=== PATIENT | male | born 1985 | race Two or more races ===

== ENCOUNTER → 2018-03-13 | Outpatient (CLI) | payer BC ==
--- NOTE | 2018-03-13 09:03 | RAD ---
Limited ultrasound abdomen March 13, 2018 INDICATION: Right upper quadrant abdominal pain. COMPARISON: None available. TECHNIQUE: Sonographic evaluation of the abdomen was performed utilizing grayscale and color Doppler. FINDINGS: Pancreas is not well visualized due to overlying bowel gas. Aorta is not well visualized. IVC is patent. There is increased echogenicity of the hepatic parenchyma suggestive of hepatocellular disease, most commonly hepatic steatosis. The liver measures 16.0 cm. Findings Limited evaluation for underlying hepatic masses. There is no intrahepatic or extrahepatic biliary ductal dilatation. This hepatopedal flow within the portal venous system. Gallbladder is mildly contracted. There is mild gallbladder wall thickening measuring up to 4 mm which may be secondary to contracted gallbladder state. Common bile duct measures 3 mm. No gallstones or pericholecystic fluid noted. The right kidney measures 11.7 x 5.7 x 5.1 cm. There is normal cortical medullary differentiation. Renal parenchyma appears normal in echogenicity. There is no hydronephrosis. No suspicious renal mass. No renal calculi are identified. There is no free fluid within the abdomen. IMPRESSION: 1. Mild gallbladder wall thickening is favored to be secondary to contracted gallbladder state. No gallstones or pericholecystic fluid are identified. 2. Increased echogenicity of the hepatic parenchyma is suggestive of hepatocellular disease, most commonly hepatic steatosis. This limits evaluation for underlying hepatic masses. Electronically signed by: Mildred Beebe MD (03/13/2018 9:00 AM) [id number]
== END | disposition home or self-care (01) ==
LOC: US 07:39
PROVIDERS: ATTEND Family Medicine
DX: K82.8 Other specified diseases of gallbladder (principal)
CPT/HCPCS: 76705